=== PATIENT | female | born 1980 ===

== ENCOUNTER 2025-06-24 15:31 | Outpatient (AMB) | payer OTHER, SELFPAY ==
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
[2025-06-24 15:42] VITALS: BP 117/78; PULSE 64; RESP 18; TEMP 36.4; O2SAT 98; BMI 20.3
== END 2025-06-24 16:26 | disposition home or self-care (01) ==
PROVIDERS: PCP Family Medicine; Referring Provider Family Medicine; Supervising Provider Obstetrics & Gynecology; Visit Provider Obstetrics & Gynecology
DX: N76.0 Acute vaginitis (principal)
CPT/HCPCS: 99213; G0463

== ENCOUNTER 2025-07-07 11:02 | Outpatient (AMB) | payer OTHER, SELFPAY ==
[2025-07-07 11:14] VITALS: BP 106/71; PULSE 55; RESP 18; TEMP 36.2; O2SAT 98; BMI 27.6
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
== END 2025-07-07 11:45 | disposition home or self-care (01) ==
PROVIDERS: PCP Family Medicine; Referring Provider Family Medicine; Supervising Provider Advanced Practice Midwife; Visit Provider Advanced Practice Midwife
DX: Z01.419 Encounter for gynecological examination (general) (routine) without abnormal findings (principal); N76.0 Acute vaginitis; E03.9 Hypothyroidism, unspecified; Z79.890 Hormone replacement therapy; Z88.5 Allergy status to narcotic agent
CPT/HCPCS: 99214; Q0091; G0463